=== PATIENT | female | born 2000 | race African-American/Black ===

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

== ENCOUNTER 2021-07-11 18:18 | Emergency (ER) | payer MEDICAID ==
[~2021-07-11] VITALS: Ht 157.5 cm; Wt 68.2 kg
--- NOTE | 2021-07-11 19:09 | PHYS DOC ---
Past Medical History Past Medical History: No Pertinent History Past Surgical History: No Surgical History Smoking Status: Unknown if ever smoked Alcohol Use: None Drug Use: None General Adult EDM: Chief Complaint: VAGINAL BLEEDING HPI: HPI: Patient is a 21 year old female who presents with states today she had sexual intercourse and began bleeding vaginally. She states that this scant bleeding. She states she did have a normal menstrual period earlier this month. She states she would like to be checked for sexually transmitted diseases. She is not on any kind of hormone or control. She denies any urinary symptoms, fever, back pain, nausea, vomiting, diarrhea, headache, dizziness, painful sex. States she is having very mild cramping that feels like menstrual cramping. Patient states 3 out of 10. Review of Systems: Review of Systems: Constitutional: Denies fever or chills. [] Eyes: Denies change in visual acuity. [] HENT: Denies nasal congestion or sore throat. [] Respiratory: Denies cough or shortness of breath. [] Cardiovascular: Denies chest pain or edema. [] GI: Denies abdominal pain, nausea, vomiting, bloody stools or diarrhea. [] : Denies dysuria. +Vaginal bleeding[] Musculoskeletal: Denies back pain or joint pain. [] Integument: Denies rash. [] Neurologic: Denies headache, focal weakness or sensory changes. [] Endocrine: Denies polyuria or polydipsia. [] Lymphatic: Denies swollen glands. [] Psychiatric: Denies depression or anxiety. [] Heart Score: C/O Chest Pain: No Allergies: Allergies: Allergies Coded Allergies Type Severity Reaction Last Updated Verified No Known Drug Allergies 10/20/18 No Physical Exam: PE: Constitutional: Well developed, well nourished, no acute distress, non-toxic appearance. [] HENT: Normocephalic, atraumatic, bilateral external ears normal, oropharynx moist, no oral exudates, nose normal. [] Eyes: PERRLA, EOMI, conjunctiva normal, no discharge. [] Neck: Normal range of motion, no tenderness, supple, no stridor. [] Cardiovascular:Heart rate regular rhythm, no murmur [] Lungs & Thorax: Bilateral breath sounds clear to auscultation [] Abdomen: Bowel sounds normal, soft, no tenderness, no masses, no pulsatile masses. [] Skin: Warm, dry, no erythema, no rash. [] Back: No tenderness, no CVA tenderness. [] Extremities: No tenderness, no cyanosis, no clubbing, ROM intact, no edema. [] Neurologic: Alert and oriented X 3, normal motor function, normal sensory function, no focal deficits noted. [] Psychologic: Affect normal, judgement normal, mood normal. [] Normal physical exam EKG: EKG: [] Radiology/Procedures: Radiology/Procedures: [] Impression: [facility] [address] [place] [address] IMAGING REPORT Signed PATIENT: FRANCISCO RIVERA ACCOUNT: [id number] : 2000 LOCATION: ER AGE: 21 SEX: F EXAM STATUS: REG ER ORD. PHYSICIAN: RADHA PATEL APRN REASON: vaginal bleeding and pelvic pain PROCEDURE: TRANSVAGINAL EXAM: ULTRASOUND PELVIS INDICATION: Pelvic pain and vaginal bleeding. COMPARISON: Obstetrical ultrasound 10/20/2018 TECHNIQUE: Transvaginal sonography was performed. FINDINGS: The uterus measures 8.6 x 4.9 x 4.3 cm. The endometrial echo measures 0.7 cm. The right ovary measures 2.7 x 2.5 x 2.1 cm and the left ovary 2.8 x 1.7 x 1.3 cm. Unremarkable uterine parenchyma. No fluid along the endometrial canal. Doppler flow is maintained to both ovaries. Several small follicles. Right ovarian cystic focus with low-level internal echoes and mild Doppler flow me asuring 1.3 x 1.1 x 1.2 cm. No free pelvic fluid. IMPRESSION: 1. Mildly complex right ovarian cystic focus measuring up to 1.3 cm favored a corpus luteum. Doppler flow is maintained to both ovaries. No abnormality at either adnexa that would warrant dedicated follow-up. 2. Within normal limits uterus and endometrium for patient age. Electronically signed by: GARLAND RODRIGUEZ MD (07/11/2021 8:37 PM) [facility] DICTATED and SIGNED BY: GARLAND RODRIGUEZ MD DATE: 07/11/212027 Course & Med Decision Making: Course & Med Decision Making Pertinent Labs and Imaging studies reviewed. (See chart for details) See HPI. Alert and oriented x4. Ambulatory with a steady gait. Speaks in full clear sentences. No CVA tenderness. Abdomen is soft and nontender. Pelvic Exam: Sports Journalist present Abdomen: Nontender External Genitalia: Normal Skin Speculum: Normal vaginal mucosa, scant bleeding cervical discharge Bimanual: No adnexal masses or tenderness, No CMT [] Dragon Disclaimer: Dragon Disclaimer: This electronic medical record was generated, in whole or in part, using a voice recognition dictation system. Departure Departure Impression: Primary Impression: Vaginal bleeding Additional Impressions: Ovarian cyst Qualified Codes: N83.201 - Unspecified ovarian cyst, right side Bacterial vaginosis Concern about STD in female without diagnosis Disposition: HOME / SELF CARE / HOMELESS Condition: STABLE Referrals: SHAUN MUNOZ MD Patient Instructions: Bacterial Vaginosis, Dysmenorrhea, [id number], Ovarian Cyst Additional Instructions: Follow-up with a edge blacker in the next 5 to 7 days. Take ibuprofen for any type of pain. If you begin going through more than 1 pad an hour that is when he should return to the emergency room. Your chlamydia and gonorrhea will be back in 48 hours and you will be called only if something comes back positive. Take medication as prescribed and with food. Scripts Metronidazole (METRONIDAZOLE) 500 Mg Tablet 1 TAB PO BID for 7 Days, #14 TAB 0 Refills Prov: RADHA PATEL APRN 07/11/21 RADHA PATEL APRN July 11, 2021 19:09
[2021-07-11 19:10] LABS: BACTERIA,URINE FEW /HPF (0-FEW)
[2021-07-11 19:29] LABS: U PREG PATIENT NEGATIVE (NEG)
[2021-07-11 20:35] VITALS: BP 101/55
--- NOTE | 2021-07-11 20:39 | RAD ---
EXAM: ULTRASOUND PELVIS INDICATION: Pelvic pain and vaginal bleeding. COMPARISON: Obstetrical ultrasound 10/20/2018 TECHNIQUE: Transvaginal sonography was performed. FINDINGS: The uterus measures 8.6 x 4.9 x 4.3 cm. The endometrial echo measures 0.7 cm. The right ovary measure s 2.7 x 2.5 x 2.1 cm and the left ovary 2.8 x 1.7 x 1.3 cm. Unremarkable uterine parenchyma. No fluid along the endometrial canal. Doppler flow is maintained to both ovaries. Several small follicles. Right ovarian cystic focus with low-level internal echoes and mild Doppler flow measuring 1.3 x 1.1 x 1.2 cm. No free pelvic fluid. IMPRESSION: 1. Mildly complex right ovarian cystic focus measuring up to 1.3 cm favored a corpus luteum. Doppler flow is maintained to both ovaries. No abnormality at either adnexa that would warrant dedicated foll ow-up. 2. Within normal limits uterus and endometrium for patient age. Electronically signed by: GARLAND RODRIGUEZ MD (07/11/2021 8:37 PM) [facility]
[2021-07-11] MEDS ORDERED: METR-34 PO (20:46)
[2021-07-14 13:18] LABS: GC PROBE Negative (Negative)
== END 2021-07-11 20:51 | disposition home or self-care (01) ==
LOC: ER 18:18
DX: Z20.2 Contact with and (suspected) exposure to infections with a predominantly sexual mode of transmission (principal); N76.0 Acute vaginitis; B96.89 Other specified bacterial agents as the cause of diseases classified elsewhere; N83.201 Unspecified ovarian cyst, right side
CPT/HCPCS: 76830; 81001; 81025; 87086; 87491; 87591; 99284; Q0111